=== PATIENT | female | born 1990 | race American Indian/Alaskan Native ===

== ENCOUNTER 2016-12-11 13:21 | Emergency (ER) | payer OTHER ==
[2016-12-11 13:21] VITALS: BMI 24.5
[2016-12-11 13:31] VITALS: TEMP 98.4
--- NOTE | 2016-12-11 13:54 | ED PDOC ---
Arrival/HPI - General Chief Complaint: Lower Extremity Problem/Injury Time Seen by Provider: 12/11/16 13:48 Historian: Patient - History of Present Illness Narrative History of Present Illness (Text): 12/11/16 13:49 A 26 year old female, whose past medical history includes DVT, presents to the emergency department complaining of bilateral calf pain for the past 3 weeks. Patient describes the pain as a cramping sensation. Patient denies any relieving or exacerbating factors. She reports the last time she was diagnosed with a DVT she followed up with a research program intern once but then stopped taking the blood thinners prescribed to her (this was >3 years ago and she was told to take them for 6 months). Patient denies any fall, injury, trauma, fever, nausea , vomiting, diarrhea, abdominal pain, urinary symptoms, chest pain, shortness of breath, lower extremity swelling or any other complaints. PMD: Dr. Queen 12/11/16 15:48 Time/Duration: Other (3 weeks) Symptom Course: Unchanged Quality: Cramping Context: Other Past Medical History - Provider Review Nursing Documentation Reviewed: Yes - Infectious Disease Hx of Infectious Diseases: None - Tetanus Immunization Tetanus Immunization: Unknown - Past Medical History Past Medical History: No Previous - Cardiac Hx Cardiac Disorders: No - Pulmonary Hx Respiratory Disorders: No - Neurological Hx Neurological Disorder: No - HEENT Hx HEENT Disorder: No - Renal Hx Renal Disorder: No - Endocrine/Metabolic Hx Endocrine Disorders: No - Hematological/Oncological Hx Blood Disorders: No Other/Comment: DVT - Integumentary Hx Dermatological Disorder: No - Musculoskeletal/Rheumatological Hx Musculoskeletal Disorders: No Hx Falls: No - Gastrointestinal Hx Gastrointestinal Disorders: No - Genitourinary/Gynecological Hx Genitourinary Disorders: No - Psychiatric Hx Psychophysiologic Disorder: No Hx Substance Use: No - Past Surgical History Past Surgical History: No Previous - Anesthesia Hx Anesthesia: No - Suicidal Assessment Feels Threatened In Home Enviroment: No Family/Social History - Physician Review Nursing Documentation Reviewed: Yes Family/Social History: Blood Clots Smoking Status: Light Smoker < 10 Cigarettes Daily Hx Alcohol Use: No Hx Substance Use: No Hx Substance Use Treatment: No Allergies/Home Meds Allergies/Adverse Reactions: Allergies latex Allergy (Severe, Verified 12/11/16 13:31) ANAPHYLAXIS Home Medications: Home Meds Medication Instructions Recorded Confirmed No Known Home Med 12/11/16 12/11/16 Review of Systems - Physician Review All systems were reviewed & negative as marked: Yes - Review of Systems Constitutional: absent: Fatigue, Weight Change, Fevers Eyes: absent: Vision Changes ENT: absent: Hearing Changes Respiratory: absent: SOB, Cough, Sputum, Wheezing Cardiovascular: Calf Pain. absent: Chest Pain, Palpitations, Edema, Orthopnea, Syncope Gastrointestinal: absent: Abdominal Pain, Constipation, Diarrhea, Nausea, Vomiting Genitourinary Female: absent: Dysuria, Frequency, Hematuria, Urine Output Changes Musculoskeletal: Other (Bilateral calf pain, No swelling) Physical Exam Vital Signs Reviewed: Yes Vital Signs Temp Pulse Resp BP Pulse Ox 12/11/16 15:07 80 16 122/84 98 12/11/16 13:34 98.4 F 81 18 121/83 99 12/11/16 13:24 98.4 F 81 18 121/83 99 Temperature: Afebrile Blood Pressure: Normal Pulse: Regular Respiratory Rate: Normal Appearance: Positive for: Well-Appearing, Non-Toxic, Comfortable Pain Distress: None Mental Status: Positive for: Alert and Oriented X 3 - Systems Exam Head: Present: Atraumatic, Normocephalic Pupils: Present: PERRL Extroacular Muscles: Present: EOMI Conjunctiva: Present: Normal Respiratory/Chest: Present: Clear to Auscultation, Good Air Exchange. No: Respiratory Distress, Accessory Muscle Use Cardiovascular: Present: Regular Rate and Rhythm, Normal S1, S2. No: Murmurs Abdomen: Present: Normal Bowel Sounds. No: Tenderness, Distention, Peritoneal Signs Lower Extremity: Present: CALF TENDERNESS (Bilateral calf tenderness to palpation), NORMAL PULSES (Normal DP pulses), Normal ROM, Neurovascularly Intact , Other (No joint laxity in bilateral knees). No: Edema, Swelling, Erythema, Deformity, Temperature Abnormalties Neurological: Present: GCS=15, CN II-XII Intact, Speech Normal, Gait Normal Skin: Present: Warm, Dry, Normal Color. No: Rashes Psychiatric: Present: Alert, Oriented x 3, Normal Insight, Normal Concentration Medical Decision Making ED Course and Treatment: 12/11/16 13:49 Impression: A 26 year old female with bilateral calf pain. No swelling evident on exam. Patient denies any trauma, swelling, chest pain or shortness of breath. Differential Diagnosis included but are not limited to: DVT vs. Musculoskeletal Plan: -- Duplex lower extremity ultrasound -- Labs -- Toradol -- Reassess and disposition Progress Notes: 12/11/16 14:48 U/s negative for DVT. Patient instructed to take motrin as needed, follow-up with PMD for leg pain and known anemia - Lab Interpretations Lab Results: 12/11/16 14:19 12/11/16 14:19 Lab Results 12/11/16 14:19: Sodium 140, Potassium 3.8, Chloride 103, Carbon Dioxide 26, Anion Gap 15, BUN 13, Creatinine 0.6, Est GFR ( Amer) > 60, Est GFR (Non- Af Amer) > 60, Random Glucose 69 L, Calcium 9.0 12/11/16 14:19: PT 11.3, INR 1.05, APTT 28.8 12/11/16 14:19: WBC 5.8, RBC 3.98, Hgb 11.3 L, Hct 34.1 L, MCV 85.7, MCH 28.4, MCHC 33.1, RDW 12.9, Plt Count 257, MPV 10.1, Gran % 48.9 L, Lymph % (Auto) 43.7 H, Towner % (Auto) 5.0, Eos % (Auto) 1.9, Baso % (Auto) 0.5, Gran # 2.85, Lymph # 2.6, Towner # 0.3, Eos # 0.1, Baso # 0.03 I have reviewed the lab results: Yes - RAD Interpretation Radiology Orders: 12/11/16 13:48 DUPLEX LOWER EXTRM VEIN BILAT [US] Stat - Medication Orders Current Medication Orders: Discontinued Medications Ketorolac Tromethamine (Toradol) 30 mg IVP STAT STA Stop: 12/11/16 13:50 Last Admin: 12/11/16 14:15 Dose: 30 mg - Scribe Statement The provider has reviewed the documentation as recorded by the Benjamin Gill Provider Scribe Attestation: All medical record entries made by the Scribe were at my direction and personally dictated by me. I have reviewed the chart and agree that the record accurately reflects my personal performance of the history, physical exam, medical decision making, and the department course for this patient. I have also personally directed, reviewed, and agree with the discharge instructions and disposition. Disposition/Present on Arrival - Present on Arrival Any Indicators Present on Arrival: No History of DVT/PE: No History of Uncontrolled Diabetes: No Urinary Catheter: No History of Decub. Ulcer: No History Surgical Site Infection Following: None - Disposition Have Diagnosis and Disposition been Completed?: Yes Diagnosis: Anemia, Leg pain Disposition: HOME/ ROUTINE Disposition Time: 14:48 Patient Plan: Discharge Condition: GOOD Discharge Instructions (ExitCare): Anemia (ED) Additional Instructions: Follow up with PMD within 2 days for further evaluation of anemia and leg pain. Motrin as needed for pain. Return to ED if condition worsens Referrals: Maximo Queen MD [Primary Care Provider] - Follow up with primary
[2016-12-11 14:19] LABS: ADD MANUAL DIFF? NO
[2016-12-11 14:29] LABS: BASO # 0.03 K/mm3 (0.0-2.0); BASO % 0.5 % (0.0-3.0); EOS # 0.1 (0.0-0.7); EOS % 1.9 % (1.5-5.0); GRAN # 2.85 (1.4-6.5); GRAN % 48.9 % (50.0-68.0); HEMATOCRIT 34.1 % (36.0-48.0); LYMPH # 2.6 (1.2-3.4); LYMPH % 43.7 % (22.0-35.0); MEAN CELL VOLUME 85.7 fL (80.0-105.0); MEAN CORPUSCULAR HEMOGLOBIN 28.4 pg (25.0-35.0); MEAN CORPUSCULAR HGB CONC 33.1 g/dl (31.0-37.0); MEAN PLATELET VOLUME 10.1 fl (7.0-11.0); MONO # 0.3 (0.1-0.6); PLATELET COUNT 257 10^3/uL (120.0-450.0); RED CELL DISTRIBUTION WIDTH 12.9 % (11.5-14.5); WHITE BLOOD COUNT 5.8 10^3/ul (4.5-11.0)
[2016-12-11 14:32] LABS: BLOOD UREA NITROGEN 13 mg/dL (7-21); CARBON DIOXIDE 26 mmol/L (21-33); CHLORIDE 103 mmol/L (98-107); GFR AFRICAN-AMERICAN > 60; GLUCOSE,RANDOM 69 mg/dL (70-110); POTASSIUM 3.8 mmol/L (3.6-5.0); SODIUM 140 mmol/L (132-148)
[2016-12-11 14:41] LABS: INR 1.05 (0.93-1.08); PARTIAL THROMBOPLASTIN TIME 28.8 Seconds (23.7-30.8)
[2016-12-11 15:09] VITALS: BP 122/84; PULSE 80; RESP 16; O2SAT 98
--- NOTE | 2016-12-11 16:15 | US ---
HISTORY: Leg pain and swelling. Evaluate for DVT PHYSICIAN(S): Bashir Borden MD. TECHNIQUE: Duplex sonography and color-flow Doppler with graded compression were used to evaluate the deep venous systems of both lower extremities. FINDINGS: The visualized deep venous systems of both lower extremities are sonographically normal and compressible. Normal wave forms and augmentation are seen. There is no sonographic evidence for deep venous thrombosis in the visualized segments of both lower extremities. IMPRESSION: No sonographic evidence for deep venous thrombosis in the visualized segments of both lower extremities.
== END 2016-12-11 15:08 | disposition home or self-care (01) ==
LOC: ED 13:21
DX: D64.9 Anemia, unspecified (principal); M79.662 Pain in left lower leg; M79.661 Pain in right lower leg
CPT/HCPCS: 80048; 85025; 85610; 85730; 93970; 96374; 99284; J1885

== ENCOUNTER 2017-01-22 09:25 | Emergency (ER) | payer OTHER ==
[2017-01-22 10:02] VITALS: RESP 18; TEMP 98.8; O2SAT 100; BMI 25.7
--- NOTE | 2017-01-22 11:01 | ED PDOC ---
Arrival/HPI - General Chief Complaint: Lower Extremity Problem/Injury Time Seen by Provider: 01/22/17 10:14 Historian: Patient - History of Present Illness Narrative History of Present Illness (Text): 01/22/17 11:01 26 year old female whose past medical history includes DVT presents to the emergency department with right knee pain for the past 2 months. She states pain is worse when standing. Patient states this is similar to previous pain. She states she took Excedrin with no significant improvement. Denies recent trauma or injury. Denies heavy lifting. Time/Duration: > month (x 2 months) Symptom Onset: Gradual Symptom Course: Unchanged Modifying Factors (Text): Excedrin with no significant improvement Past Medical History - Provider Review Nursing Documentation Reviewed: Yes - Infectious Disease Hx of Infectious Diseases: None - Tetanus Immunization Tetanus Immunization: Unknown - Past Medical History Past Medical History: No Previous - Cardiac Hx Cardiac Disorders: No - Pulmonary Hx Respiratory Disorders: No - Neurological Hx Neurological Disorder: No - HEENT Hx HEENT Disorder: No - Renal Hx Renal Disorder: No - Endocrine/Metabolic Hx Endocrine Disorders: No - Hematological/Oncological Hx Blood Disorders: No Other/Comment: DVT - Integumentary Hx Dermatological Disorder: No - Musculoskeletal/Rheumatological Hx Musculoskeletal Disorders: No Hx Falls: No Other/Comment: DVT - Gastrointestinal Hx Gastrointestinal Disorders: No - Genitourinary/Gynecological Hx Genitourinary Disorders: No - Psychiatric Hx Psychophysiologic Disorder: No Hx Substance Use: No - Past Surgical History Past Surgical History: No Previous - Anesthesia Hx Anesthesia: No - Suicidal Assessment Feels Threatened In Home Enviroment: No Family/Social History - Physician Review Nursing Documentation Reviewed: Yes Family/Social History: Unknown Family HX Smoking Status: Light Smoker < 10 Cigarettes Daily Hx Alcohol Use: Yes Frequency of alcohol use: Socially Hx Substance Use: No Hx Substance Use Treatment: No Allergies/Home Meds Allergies/Adverse Reactions: Allergies latex Allergy (Severe, Verified 01/22/17 10:02) ANAPHYLAXIS Home Medications: Home Meds Medication Instructions Recorded Confirmed No Known Home Med 12/11/16 01/22/17 Review of Systems - Review of Systems Musculoskeletal: Other (Right knee pain) Neurological: absent: Headache, Dizziness Physical Exam Vital Signs Reviewed: Yes Vital Signs Temp Pulse Resp BP Pulse Ox 01/22/17 12:30 71 18 107/69 100 01/22/17 09:56 98.8 F 78 18 110/70 100 Temperature: Afebrile Blood Pressure: Normal Pulse: Regular Respiratory Rate: Normal Appearance: Positive for: Well-Appearing, Non-Toxic, Comfortable Pain Distress: None Mental Status: Positive for: Alert and Oriented X 3 - Systems Exam Lower Extremity: Present: NORMAL PULSES, Normal ROM, Tenderness (to the medial side of the knee), Neurovascularly Intact, Other (No ataxia. No instability of knee when walking). No: Edema, CALF TENDERNESS, Swelling, Erythema Neurological: Present: GCS=15, CN II-XII Intact, Speech Normal Skin: Present: Warm, Dry, Normal Color. No: Rashes Psychiatric: Present: Alert, Oriented x 3, Normal Insight, Normal Concentration Medical Decision Making ED Course and Treatment: Impression: 26 year old female presents to the emergency department with right knee pain for the past 2 months. Differential Diagnosis included but are not limited to: Knee strain vs fracture Plan: -- XR right knee -- Ibuprofen -- Reassess and disposition Prior Visits: Notes and results from previous visits were reviewed. Patient last seen in the ED on 12/11/16 for bilateral leg pain and discharged home. Sonogram negative for DVT. Progress Notes: 01/22/17 11:51 X-ray read by me negative for fracture or dislocation 01/22/17 11:52 Will mo wrap and discharge home. Patient aware of and agrees with plan. - RAD Interpretation Radiology Orders: 01/22/17 11:15 KNEE RIGHT 2 VIEWS (AP & LAT) [RAD] Stat - Medication Orders Current Medication Orders: Discontinued Medications Ibuprofen (Motrin Tab) 600 mg PO STAT STA Stop: 01/22/17 11:16 Last Admin: 01/22/17 11:53 Dose: 600 mg - Scribe Statement The provider has reviewed the documentation as recorded by the Benjamin Clark Provider Scribe Attestation: All medical record entries made by the Benjamin were at my direction and personally dictated by me. I have reviewed the chart and agree that the record accurately reflects my personal performance of the history, physical exam, medical decision making, and the department course for this patient. I have also personally directed, reviewed, and agree with the discharge instructions and disposition. Disposition/Present on Arrival - Present on Arrival Any Indicators Present on Arrival: No History of DVT/PE: No History of Uncontrolled Diabetes: No Urinary Catheter: No History of Decub. Ulcer: No History Surgical Site Infection Following: None - Disposition Have Diagnosis and Disposition been Completed?: Yes Diagnosis: Knee strain Disposition: HOME/ ROUTINE Disposition Time: 11:53 Patient Plan: Discharge Condition: GOOD Discharge Instructions (ExitCare): Knee Pain (ED) Additional Instructions: Ms Mejía, thank you for letting us take care of you today. Your provider was Dr. Teague. You were treated for Knee Strain. The emergency medical care you received today was directed at your acute symptoms. If you were prescribed any medication, please fill it and take as directed. It may take several days for your symptoms to resolve. Return to the Emergency Department if your symptoms worsen, do not improve, or if you have any other problems. Please contact your doctor or call one of the physicians/clinics you have been referred to that are listed on the Patient Visit Information form that is included in your discharge packet. Bring any paperwork you were given at discharge with you along with any medications you are taking to your follow up visit. Our treatment cannot replace ongoing medical care by a primary care provider (PCP) outside of the emergency department. Thank you for allowing the [facility] team to be part of your care today. If you had an X-Ray or CT scan: A Radiologist will review the ED reading if any change in treatment is needed we will contact you. If you had a blood, urine, or wound culture: It will take several days for the results, if any change in treatment is needed we will contact you. If you had an STI test: It will take 48 hours for the results. Please call after 1 week if you have not heard back. Referrals: [facility] [place] [Outside] - Follow up with primary PCP,NO [Primary Care Provider] - Follow up with primary Yefri Encarnacion MD [Staff Provider] - Follow up with primary Forms: [employer] (Chinese), WORK NOTE
--- NOTE | 2017-01-22 12:24 | RAD ---
PROCEDURE: Right Knee Radiographs. HISTORY: pain r/o fx COMPARISON: None. FINDINGS: BONES: Normal. No fracture. JOINTS: Normal. No osteoarthritis. JOINT EFFUSION: None. OTHER FINDINGS: None. IMPRESSION: Normal radiographs of the right knee.
[2017-01-22 12:30] VITALS: BP 107/69; PULSE 71
== END 2017-01-22 12:30 | disposition home or self-care (01) ==
LOC: ED 09:25
DX: S86.911A Strain of unspecified muscle(s) and tendon(s) at lower leg level, right leg, initial encounter (principal); X58.XXXA Exposure to other specified factors, initial encounter; Z86.718 Personal history of other venous thrombosis and embolism

== ENCOUNTER 2017-08-11 13:08 | Emergency (ER) | payer OTHER ==
[2017-08-11 13:09] VITALS: BMI 25.7
--- NOTE | 2017-08-11 13:30 | ED PDOC ---
Arrival/HPI - General Time Seen by Provider: 08/11/17 13:29 Historian: Patient - History of Present Illness Narrative History of Present Illness (Text): 08/11/17 13:29 27 y/o female, pmh including dvt, nkda, not on any anticoagulant or antiplatete , c/o sorethroat/cough/bodyache x 2 days with no recent traveling. Aching throat pain, associated with the cough and bodyache, no recent traveling, no fever or chills, no night sweat, no dizziness, no numbness or tingling, no other medical or psychological complaints. Past Medical History - Provider Review Nursing Documentation Reviewed: Yes - Infectious Disease Hx of Infectious Diseases: None - Tetanus Immunization Tetanus Immunization: Unknown - Past Medical History Past Medical History: No Previous - Cardiac Hx Cardiac Disorders: No - Pulmonary Hx Respiratory Disorders: No - Neurological Hx Neurological Disorder: No - HEENT Hx HEENT Disorder: No - Renal Hx Renal Disorder: No - Endocrine/Metabolic Hx Endocrine Disorders: No - Hematological/Oncological Hx Blood Disorders: No Other/Comment: DVT - Integumentary Hx Dermatological Disorder: No - Musculoskeletal/Rheumatological Hx Musculoskeletal Disorders: No Hx Falls: No Other/Comment: DVT - Gastrointestinal Hx Gastrointestinal Disorders: No - Genitourinary/Gynecological Hx Genitourinary Disorders: No - Psychiatric Hx Psychophysiologic Disorder: No Hx Substance Use: No - Past Surgical History Past Surgical History: No Previous - Anesthesia Hx Anesthesia: No - Suicidal Assessment Feels Threatened In Home Enviroment: No Family/Social History - Physician Review Nursing Documentation Reviewed: Yes Family/Social History: Unknown Family HX Smoking Status: Light Smoker < 10 Cigarettes Daily Hx Alcohol Use: Yes Hx Substance Use: No Hx Substance Use Treatment: No Allergies/Home Meds Allergies/Adverse Reactions: Allergies latex Allergy (Severe, Verified 08/11/17 13:42) ANAPHYLAXIS Review of Systems - Review of Systems Constitutional: absent: Fatigue, Fevers Eyes: absent: Vision Changes ENT: Sore Throat. absent: Hearing Changes Respiratory: Cough. absent: SOB Cardiovascular: absent: Chest Pain Gastrointestinal: absent: Abdominal Pain, Nausea, Vomiting Skin: absent: Rash, Pruritis Neurological: absent: Headache, Dizziness Physical Exam Vital Signs Temp Pulse Resp BP Pulse Ox 08/11/17 13:42 98.7 F 86 16 119/81 100 Temperature: Afebrile Blood Pressure: Normal Pulse: Regular Respiratory Rate: Normal Appearance: Positive for: Well-Appearing, Non-Toxic, Comfortable Pain Distress: Mild Mental Status: Positive for: Alert and Oriented X 3 - Systems Exam Head: Present: Atraumatic, Normocephalic, Other (no facial sinus tenderness) Pupils: Present: PERRL Extroacular Muscles: Present: EOMI Conjunctiva: Present: Normal Ears: Present: NORMAL TM. No: Erythema Mouth: Present: Moist Mucous Membranes Pharnyx: No: ERYTHEMA, EXUDATE, TONSILS ENLARGED, Uvular Deviation, Muffled/ Hoarse Voice, Soft Palate/Uvular Edema Nose (External): No: Abrasion, Contusion Nose (Internal): Present: Normal Inspection, No Active Bleeding. No: Rhinorrhea , Septal Hematoma, Epistaxis Neck: Present: Normal Range of Motion Respiratory/Chest: Present: Clear to Auscultation, Good Air Exchange. No: Respiratory Distress, Accessory Muscle Use, Wheezes, Retracting, Rhonchi Cardiovascular: Present: Regular Rate and Rhythm, Normal S1, S2. No: Murmurs Abdomen: Present: Normal Bowel Sounds. No: Tenderness, Distention, Peritoneal Signs Back: Present: Normal Inspection Upper Extremity: Present: Normal Inspection. No: Cyanosis, Edema Lower Extremity: Present: Normal Inspection. No: Edema Neurological: Present: GCS=15, Speech Normal, Motor Func Grossly Intact, Gait Normal, Memory Normal Skin: Present: Warm, Dry, Normal Color. No: Rashes Psychiatric: Present: Alert, Oriented x 3, Normal Insight, Normal Concentration Medical Decision Making ED Course and Treatment: 08/11/17 14:10 -rapid flu -chest xray -observe and reassess 08/11/17 15:06 -rapid flu negative, clinical suspicious is high -Discharge home with tamiflu, tylenol, promethazine dm, bed rest, follow up with your own pmd and ENT within 2 days, return to the ER for any new or worsening signs or symptoms. - Lab Interpretations Lab Results: Lab Results 08/11/17 14:00: Influenza Typ A,B (EIA) Negative for flu a/b - RAD Interpretation Radiology Orders: 08/11/17 14:07 CHEST PORTABLE [RAD] Stat Disposition/Present on Arrival - Present on Arrival Any Indicators Present on Arrival: No History of DVT/PE: No History of Uncontrolled Diabetes: No Urinary Catheter: No History of Decub. Ulcer: No History Surgical Site Infection Following: None - Disposition Have Diagnosis and Disposition been Completed?: Yes Diagnosis: Influenza-like symptoms Disposition: HOME/ ROUTINE Disposition Time: 15:08 Isolation: Special Contact Patient Plan: Discharge Patient Problems: Current Active Problems Problem Status Onset Influenza-like symptoms Acute Condition: GOOD Additional Instructions: -Discharge home with tamiflu, tylenol, promethazine dm, bed rest, follow up with your own pmd and ENT within 2 days, return to the ER for any new or worsening signs or symptoms. Prescriptions: Acetaminophen [Tylenol 325mg tab] 2 tab PO QID PRN #30 tab PRN Reason: Other Oseltamivir Phosphate [Tamiflu] 75 mg PO BID #10 capsule Promethazine DM [Phenergan DM Syrup] 5 ml PO QID PRN #200 ml PRN Reason: Other Referrals: Maximo Queen MD [Primary Care Provider] - Follow up with primary Neftaly Swan DO [Staff Provider] - Follow up with primary Forms: WORK NOTE
[2017-08-11 13:47] VITALS: TEMP 98.7; O2SAT 100
--- NOTE | 2017-08-11 15:27 | RAD ---
HISTORY: medical clearance COMPARISON: No prior. FINDINGS: LUNGS: No active pulmonary disease. PLEURA: No significant pleural effusion identified, no pneumothorax apparent. CARDIOVASCULAR: Normal. OSSEOUS STRUCTURES: No significant abnormalities. VISUALIZED UPPER ABDOMEN: Normal. OTHER FINDINGS: None. IMPRESSION: No active disease. Concordant results with the preliminary interpretation rendered by the emergency department physician procedure.
[2017-08-11 15:36] VITALS: BP 129/84; PULSE 84; RESP 14
== END 2017-08-11 15:47 | disposition home or self-care (01) ==
LOC: ED 13:08
DX: J11.1 Influenza due to unidentified influenza virus with other respiratory manifestations (principal); F17.210 Nicotine dependence, cigarettes, uncomplicated

== ENCOUNTER 2017-09-16 09:37 | Emergency (ER) | payer OTHER ==
[2017-09-16 10:02] VITALS: O2SAT 100
[2017-09-16 10:09] VITALS: BMI 26.4
[2017-09-16] MEDS: Sodium Chloride 0.9% 1,000 ML IV STA (11:17)
[2017-09-16] MEDS: Ipratropium 0.02% Inhal Soln (0.5 mg/2.5 ml) UD IH STA (11:17)
--- NOTE | 2017-09-16 12:34 | ED PDOC ---
Arrival/HPI - General Chief Complaint: Flu-like Symptoms Time Seen by Provider: 09/16/17 10:37 Historian: Patient - History of Present Illness Narrative History of Present Illness (Text): 09/16/17 12:31 A 27 year old female, whose past medical history includes DVT, presents to the emergency department complaining of generalized headache, rhinorrhea, productive cough with whitish-yellowish mucous, and body aches. Patient denies any nausea, vomiting, diarrhea, focal deficits, abdominal pain, dysuria, or any other complaints. Also, patient denies any sick contacts. PMD: Dr. Maximo Queen Past Medical History - Provider Review Nursing Documentation Reviewed: Yes - Infectious Disease Hx of Infectious Diseases: None - Tetanus Immunization Tetanus Immunization: Unknown - Past Medical History Past Medical History: No Previous - Cardiac Hx Cardiac Disorders: No - Pulmonary Hx Respiratory Disorders: No - Neurological Hx Neurological Disorder: No - HEENT Hx HEENT Disorder: No - Renal Hx Renal Disorder: No - Endocrine/Metabolic Hx Endocrine Disorders: No - Hematological/Oncological Hx Blood Disorders: No Other/Comment: DVT - Integumentary Hx Dermatological Disorder: No - Musculoskeletal/Rheumatological Hx Musculoskeletal Disorders: No Hx Falls: No Other/Comment: DVT - Gastrointestinal Hx Gastrointestinal Disorders: No - Genitourinary/Gynecological Hx Genitourinary Disorders: No - Psychiatric Hx Psychophysiologic Disorder: No Hx Substance Use: No - Past Surgical History Past Surgical History: No Previous - Anesthesia Hx Anesthesia: No - Suicidal Assessment Feels Threatened In Home Enviroment: No Family/Social History - Physician Review Nursing Documentation Reviewed: Yes Family/Social History: No Known Family HX Smoking Status: Light Smoker < 10 Cigarettes Daily Hx Alcohol Use: Yes Hx Substance Use: No Hx Substance Use Treatment: No Allergies/Home Meds Allergies/Adverse Reactions: Allergies latex Allergy (Severe, Verified 09/16/17 10:09) ANAPHYLAXIS Review of Systems - Physician Review All systems were reviewed & negative as marked: Yes - Review of Systems ENT: Rhinorrhea Respiratory: Cough (productive with whitish-yellowish mucous) Gastrointestinal: absent: Abdominal Pain, Diarrhea, Nausea, Vomiting Genitourinary Female: absent: Dysuria Musculoskeletal: Myalgias Neurological: Headache Physical Exam Vital Signs Reviewed: Yes Vital Signs Temp Pulse Resp BP Pulse Ox 09/16/17 11:17 101.8 F H 09/16/17 10:00 101.8 F H 109 H 18 127/78 100 Temperature: Afebrile Blood Pressure: Normal Pulse: Regular Respiratory Rate: Normal Appearance: Positive for: Well-Appearing Pain Distress: None Mental Status: Positive for: Alert and Oriented X 3 - Systems Exam Head: Present: Atraumatic, Normocephalic Pupils: Present: PERRL Extroacular Muscles: Present: EOMI Conjunctiva: Present: Normal Mouth: Present: Dry Nose (Internal): Present: Other (nasal turbinates) Neck: Present: Normal Range of Motion Respiratory/Chest: Present: Clear to Auscultation, Good Air Exchange. No: Respiratory Distress, Accessory Muscle Use Cardiovascular: Present: Regular Rate and Rhythm, Normal S1, S2. No: Murmurs Abdomen: Present: Normal Bowel Sounds. No: Tenderness, Distention, Peritoneal Signs Back: Present: Normal Inspection Upper Extremity: Present: Normal Inspection. No: Cyanosis, Edema Lower Extremity: Present: Normal Inspection. No: Edema Neurological: Present: GCS=15, CN II-XII Intact, Speech Normal Skin: Present: Warm, Dry, Normal Color. No: Rashes Psychiatric: Present: Alert, Oriented x 3, Normal Insight, Normal Concentration Medical Decision Making ED Course and Treatment: 09/16/17 12:34 Impression: 27 year old female with generalized headache, rhinorrhea, productive cough with whitish-yellowish mucous, and body aches. Physical exam shows dry mucous membranes and nasal turbinates. Plan: -- Chest X-ray -- Urinalysis -- Rapid Flu Test -- Atrovent -- Toradol -- Tylenol -- IV Fluids -- Reassess and disposition Prior Visits: Notes and results from previous visits were reviewed. Patient was last seen in the emergency department on 08/11/2017 for sore throat, cough, bodyache. Patient was d/c home. Progress Notes: On re-evaluation, patient feels better and is in no acute distress. I have discussed the results and plan with the patient, who expresses understanding. Patient in agreement with plan to be discharged home. Patient is stable for discharge. Patient was instructed to follow up with physician or return if symptoms worsen or new concerning symptoms arise. 09/16/17 12:36 feels better, diet/lifestyle/return directions counseled. - Lab Interpretations Lab Results: Lab Results 09/16/17 11:04: Urine HCG, Qual Negative 09/16/17 10:12: Influenza Typ A,B (EIA) Negative for flu a/b - RAD Interpretation Radiology Orders: 09/16/17 10:40 CHEST TWO VIEWS (PA/LAT) [RAD] Stat - Medication Orders Current Medication Orders: Discontinued Medications Acetaminophen (Tylenol 325mg Tab) 975 mg PO STAT STA Stop: 09/16/17 10:38 Last Admin: 09/16/17 11:17 Dose: 975 mg MAR Pain/Vitals Document 09/16/17 11:17 SE (Rec: 09/16/17 11:17 SE [id number]) Pain Reassessment Is This A Pain ReAssessment? No Sleep Is patient sleeping during reassessment? No Vitals Temperature (97.6 F-99.6 F) 101.8 F Temperature Source Oral Sodium Chloride (Sodium Chloride 0.9%) 1,000 mls @ 999 mls/hr IV .Q1H1M STA Stop: 09/16/17 11:39 Last Admin: 09/16/17 11:17 Dose: 999 mls/hr eMAR Start Stop Document 09/16/17 11:17 SE (Rec: 09/16/17 11:17 SE [id number]) Intravenous Solution Start Date 09/16/17 Start Time 11:17 Ipratropium [place] (Atrovent) 0.5 mg IH STAT STA Stop: 09/16/17 10:40 Last Admin: 09/16/17 11:17 Dose: 0.5 mg Ketorolac Tromethamine (Toradol) 15 mg IVP STAT STA Stop: 09/16/17 10:40 Last Admin: 09/16/17 11:17 Dose: 15 mg MAR Pain Assessment Document 09/16/17 11:17 SE (Rec: 09/16/17 11:17 SE [id number]) Pain Reassessment Is this a pain reassessment? No Sleep Is patient sleeping during reassessment? No Presence of Pain Presence of Pain Yes Pain Scale Used Pain Scale Used Numeric IVP Administration Document 09/16/17 11:17 SE (Rec: 09/16/17 11:17 SE [id number]) Charges for Administration # of IVP Administrations 1 Ketorolac Tromethamine (Toradol) 15 mg IVP STAT STA Stop: 09/16/17 12:13 Oseltamivir Phosphate (Tamiflu Cap) 75 mg PO ONCE ONE PRN Reason: Protocol Stop: 09/16/17 12:28 - Scribe Statement The provider has reviewed the documentation as recorded by the Benjamin Mora Provider Shiraibe Attestation: All medical record entries made by the Scribe were at my direction and personally dictated by me. I have reviewed the chart and agree that the record accurately reflects my personal performance of the history, physical exam, medical decision making, and the department course for this patient. I have also personally directed, reviewed, and agree with the discharge instructions and disposition. Disposition/Present on Arrival - Present on Arrival Any Indicators Present on Arrival: No History of DVT/PE: No History of Uncontrolled Diabetes: No Urinary Catheter: No History of Decub. Ulcer: No History Surgical Site Infection Following: None - Disposition Have Diagnosis and Disposition been Completed?: Yes Diagnosis: Viral syndrome Disposition: HOME/ ROUTINE Disposition Time: 12:36 Patient Plan: Discharge Patient Problems: Current Active Problems Problem Status Onset Viral syndrome Acute Condition: IMPROVED Discharge Instructions (ExitCare): Viral Syndrome (ED), Dehydration (DC) Print Language: OCCITAN Additional Instructions: Drink plenty of water, water, herbal teas as we discussed (such as darnell/garlic /fresh lemon/ peppermitn concoction ), take tylenol alternating with motrin for your muscle aches and pains. Get extra rest. Take the tamiflu as prescribed and return for worseniing symptoms. Follow uyp with your pmd as needed for worsening symptoms or to ED if fevers are continuing or you develop shortness of bretah or intractable headache with fever . Prescriptions: Acetaminophen [Tylenol 325mg tab] 650 mg PO Q6 PRN #40 tab PRN Reason: Pain, Moderate (4-7) Ibuprofen [Motrin Tab] 600 mg PO Q6 PRN #40 tab PRN Reason: Pain, Moderate (4-7) Ipratropium [Atrovent HFA] 0.018 mg IH Q6 PRN #1 bottle PRN Reason: Cough Oseltamivir Phosphate [Tamiflu] 75 mg PO BID #10 capsule Referrals: Maximo Queen MD [Primary Care Provider] - Follow up with primary Forms: [employer] ([place])
[2017-09-16 12:49] VITALS: BP 130/82; PULSE 87; RESP 16; TEMP 98.9
== END 2017-09-16 13:17 | disposition home or self-care (01) ==
LOC: ED 09:37
DX: B34.9 Viral infection, unspecified (principal)
CPT/HCPCS: 84703; 87804; 96374; 96376; 99284; J1885; J7040

== ENCOUNTER 2018-03-30 22:03 | Emergency (ER) | payer OTHER ==
[2018-03-30 22:04] VITALS: BMI 26.4
[2018-03-30 22:27] VITALS: TEMP 98.3; O2SAT 100
[2018-03-30] MEDS ORDERED: TDAP Vaccine 0.5 mL Syr IM ONE (22:44)
--- NOTE | 2018-03-30 22:55 | ED PDOC ---
Arrival/HPI - General Chief Complaint: Lower Extremity Problem/Injury Time Seen by Provider: 03/30/18 22:44 Historian: Patient - History of Present Illness Narrative History of Present Illness (Text): 03/30/18 22:48 27 year old female, with no significant past medical history, whose last tetanus shot was over 10 years ago, presents to the emergency department complaining of pain to the sole of the foot after stepping on broken glass without any shoes or sock which occurred 2 days ago at home. Patient states she was cleaning broken glass at home and thought she cleaned everything, but accidentally stepped on a small piece of glass. Patient reports pain with foreign body sensation ever since to the sole of the foot. Patient denies having any known tingling, numbness, difficulty standing, or any other complaints/injuries. Time/Duration: Other (2 days) Symptom Onset: Sudden Symptom Course: Unchanged Activities at Onset: Light Context: Home Past Medical History - Provider Review Nursing Documentation Reviewed: Yes - Infectious Disease Hx of Infectious Diseases: None - Tetanus Immunization Tetanus Immunization: Unknown - Past Medical History Past Medical History: No Previous - Cardiac Hx Cardiac Disorders: No - Pulmonary Hx Respiratory Disorders: No - Neurological Hx Neurological Disorder: No - HEENT Hx HEENT Disorder: No - Renal Hx Renal Disorder: No - Endocrine/Metabolic Hx Endocrine Disorders: No - Hematological/Oncological Hx Blood Disorders: No Other/Comment: DVT - Integumentary Hx Dermatological Disorder: No - Musculoskeletal/Rheumatological Hx Musculoskeletal Disorders: No Hx Falls: No Other/Comment: DVT - Gastrointestinal Hx Gastrointestinal Disorders: No - Genitourinary/Gynecological Hx Genitourinary Disorders: No - Psychiatric Hx Psychophysiologic Disorder: No Hx Substance Use: No - Past Surgical History Past Surgical History: No Previous - Anesthesia Hx Anesthesia: No - Suicidal Assessment Feels Threatened In Home Enviroment: No Family/Social History - Physician Review Nursing Documentation Reviewed: Yes Family/Social History: No Known Family HX Smoking Status: Light Smoker < 10 Cigarettes Daily Hx Alcohol Use: Yes Hx Substance Use: No Hx Substance Use Treatment: No Allergies/Home Meds Allergies/Adverse Reactions: Allergies latex Allergy (Severe, Verified 09/16/17 10:09) ANAPHYLAXIS Review of Systems - Physician Review All systems were reviewed & negative as marked: Yes - Review of Systems Constitutional: absent: Fatigue, Fevers Eyes: absent: Vision Changes ENT: absent: Hearing Changes Respiratory: absent: SOB, Cough Cardiovascular: absent: Chest Pain Gastrointestinal: absent: Abdominal Pain, Nausea, Vomiting Musculoskeletal: absent: Arthralgias, Back Pain, Neck Pain, Myalgias Skin: Other (puncture wound to the right side of the plantar surface of the foot. ). absent: Rash, Pruritis Neurological: absent: Headache, Dizziness Psychiatric: absent: Anxiety, Depression Physical Exam Vital Signs Reviewed: Yes Vital Signs Temp Pulse Resp BP Pulse Ox 03/31/18 00:30 87 16 127/79 100 03/30/18 22:18 98.3 F 76 18 130/86 100 Temperature: Afebrile Blood Pressure: Normal Pulse: Regular Respiratory Rate: Normal Appearance: Positive for: Well-Appearing, Non-Toxic, Comfortable Pain Distress: Mild Mental Status: Positive for: Alert and Oriented X 3 - Systems Exam Head: Present: Atraumatic, Normocephalic Pupils: Present: PERRL Extroacular Muscles: Present: EOMI Conjunctiva: Present: Normal Mouth: Present: Moist Mucous Membranes Neck: Present: Normal Range of Motion Respiratory/Chest: Present: Clear to Auscultation, Good Air Exchange. No: Respiratory Distress, Accessory Muscle Use Cardiovascular: Present: Regular Rate and Rhythm, Normal S1, S2. No: Murmurs Abdomen: No: Tenderness, Distention, Peritoneal Signs Back: Present: Normal Inspection Upper Extremity: Present: Normal Inspection. No: Cyanosis, Edema Lower Extremity: Present: Normal ROM, Neurovascularly Intact, Other (Visible 0.5 cm diameter puncture wound with slight bruising. No visible or palpable foreign body sensation. Rt. foot with neurovascular intact. ). No: Edema Neurological: Present: GCS=15, CN II-XII Intact, Speech Normal Skin: Present: Warm, Dry, Normal Color. No: Rashes Psychiatric: Present: Alert, Oriented x 3, Normal Insight, Normal Concentration Medical Decision Making ED Course and Treatment: 03/30/18 22:55 Impression: 27 year old female presents complaining of a foreign body sensation after stepping on broken glass with no shoes or socks on that occurred 2 days ago. Plan: -- TDAP Vaccine -- Keflex/motrin -- POC Urine Preg. Test -- Foot Right 3 V X-ray -- Reassess and disposition 03/31/18 00:14 -Urine hcg is negative. -Rt. foot xray show no fracture/dislocation/foreign bodies. -Wound irrigated with saline 1000cc, clean with betadine, wound explored by me on the bed side with no visible or palpable foreign body grinding, advised to follow up with the weaver hand for further evaluation and crutches. I explained to the patient that there is possibility of small foreign bodies that's not visible and she would need to see the weaver hand for follow up. -Discharge home with keflex, motrin, crutches, non-weight bearing until the pain resolved, follow up with your own pmd and weaver hand within 2 days, return to the ER for any new or worsening signs or symptoms. - RAD Interpretation Radiology Orders: 03/30/18 22:44 FOOT RIGHT 3 VIEWS ROUTINE [RAD] Stat normal right foot radiograph Purchasing Intern: Radiologist - Medication Orders Current Medication Orders: Discontinued Medications Cephalexin Monohydrate (Keflex) 500 mg PO STAT STA PRN Reason: Protocol Stop: 03/30/18 22:48 Last Admin: 03/30/18 23:15 Dose: 500 mg Ibuprofen (Motrin Tab) 600 mg PO STAT STA Stop: 03/31/18 00:14 Last Admin: 03/31/18 00:21 Dose: 600 mg MAR Pain/Vitals Document 03/31/18 00:21 AD (Rec: 03/31/18 00:23 AD [id number]) Presence of Pain Presence of Pain Yes Location Intensity 5 Scale Used Numeric Tetanus/Reduced Diphtheria/Acell Pertussis (Boostrix Vaccine Inj) 0.5 ml IM .ONCE ONE Stop: 03/30/18 22:45 Last Admin: 03/30/18 23:15 Dose: 0.5 ml Immunization Registry Document 03/30/18 23:15 AD (Rec: 03/30/18 23:37 AD [id number]) Immunization Registry Consent Date 03/30/18 - PA / WAREHOUSE TEAM MEMBER / Resident Statement MD/DO has reviewed & agrees with the documentation as recorded. - Scribe Statement The provider has reviewed the documentation as recorded by the Benjamin Cohn Provider Scribe Attestation: All medical record entries made by the Scribe were at my direction and personally dictated by me. I have reviewed the chart and agree that the record accurately reflects my personal performance of the history, physical exam, medical decision making, and the department course for this patient. I have also personally directed, reviewed, and agree with the discharge instructions and disposition. Disposition/Present on Arrival - Present on Arrival Any Indicators Present on Arrival: No History of DVT/PE: No History of Uncontrolled Diabetes: No Urinary Catheter: No History of Decub. Ulcer: No History Surgical Site Infection Following: None - Disposition Have Diagnosis and Disposition been Completed?: Yes Diagnosis: Puncture wound Disposition: HOME/ ROUTINE Disposition Time: 00:17 Patient Plan: Discharge Condition: IMPROVED Additional Instructions: -Discharge home with keflex, motrin, crutches, non-weight bearing until the pain resolved, follow up with your own pmd and weaver hand within 2 days, return to the ER for any new or worsening signs or symptoms. Prescriptions: Cephalexin [Keflex] 500 mg PO TID #21 capsule Ibuprofen [Motrin Tab] 600 mg PO QID PRN #30 tab PRN Reason: Other Referrals: Torsten Johnson DPM [Staff Provider] - Follow up with primary Forms: [facility] ([place]), WORK NOTE
[2018-03-31 00:46] VITALS: BP 127/79; PULSE 87; RESP 16
--- NOTE | 2018-03-31 12:15 | RAD ---
Date of service: 03/30/2018 PROCEDURE: Right Foot Radiographs. HISTORY: rt. foot sole puncture wound, glass? COMPARISON: None. FINDINGS: BONES: Normal. No fracture. JOINTS: Normal. SOFT TISSUES: Normal. OTHER FINDINGS: None. IMPRESSION: Normal right foot radiographs.No visulaized radiopaque/visualized foreign body. Concordant results with the preliminary interpretation rendered by the emergency department physician procedure.
== END 2018-03-31 00:30 | disposition home or self-care (01) ==
LOC: ED 22:03
DX: S91.331A Puncture wound without foreign body, right foot, initial encounter (principal); W22.8XXA Striking against or struck by other objects, initial encounter; Y92.009 Unspecified place in unspecified non-institutional (private) residence as the place of occurrence of the external cause; Z23 Encounter for immunization

== ENCOUNTER 2018-07-13 21:30 | Emergency (ER) | payer OTHER ==
[2018-07-13 23:06] VITALS: BP 113/80; PULSE 64; RESP 18; TEMP 98
[2018-07-13 23:13] VITALS: BMI 25.0
--- NOTE | 2018-07-14 00:04 | ED PDOC ---
Arrival/HPI - General Historian: Patient - History of Present Illness Narrative History of Present Illness (Text): 07/13/18 23:05 27 year old female, whose past medical history includes sciatica and lower extremity DVT, presents to the emergency department complaining of left-sided arm pain for the past 1 day. Pain is located in the left bicep and is worse with movement, but denies any trauma or injury. She states she has been having lower back pain for the last month that feels like her sciatica pain which intermittently radiates down to the back of her legs. Patient did not take any medication for pain. Patient denies any fever, chills, cough, chest pain, shortness of breath, abdominal pain, nausea, vomiting, diarrhea, urinary symptoms, bowel/bladder incontinence, saddle anesthesia, weakness/parathesia, gait changes, headache, dizziness, or any other complaints. PMD: Dr. Queen Time/Duration: 24 hours Symptom Onset: Gradual Symptom Course: Unchanged Activities at Onset: Light Context: Home <Enid Martinez - Last Filed: 07/14/18 02:46> <Luke Middleton - Last Filed: 07/14/18 05:49> - General Chief Complaint: Back Pain Past Medical History - Provider Review Nursing Documentation Reviewed: Yes - Infectious Disease Hx of Infectious Diseases: None - Tetanus Immunization Tetanus Immunization: Unknown - Past Medical History Past Medical History: No Previous - Cardiac Hx Cardiac Disorders: No - Pulmonary Hx Respiratory Disorders: No - Neurological Hx Neurological Disorder: No - HEENT Hx HEENT Disorder: No - Renal Hx Renal Disorder: No - Endocrine/Metabolic Hx Endocrine Disorders: No - Hematological/Oncological Hx Blood Disorders: No Other/Comment: DVT - Integumentary Hx Dermatological Disorder: No - Musculoskeletal/Rheumatological Hx Musculoskeletal Disorders: Yes Hx Back Pain: Yes Hx Falls: No Other/Comment: DVT - Gastrointestinal Hx Gastrointestinal Disorders: No - Genitourinary/Gynecological Hx Genitourinary Disorders: No - Psychiatric Hx Psychophysiologic Disorder: No Hx Substance Use: No - Past Surgical History Past Surgical History: No Previous - Anesthesia Hx Anesthesia: No - Suicidal Assessment Feels Threatened In Home Enviroment: No <Enid Martinez - Last Filed: 07/14/18 02:46> Family/Social History - Physician Review Nursing Documentation Reviewed: Yes Family/Social History: No Known Family HX Smoking Status: Light Smoker < 10 Cigarettes Daily Hx Alcohol Use: Yes Frequency of alcohol use: Socially Hx Substance Use: No Hx Substance Use Treatment: No <GeminigauravEnid - Last Filed: 07/14/18 02:46> Allergies/Home Meds <Deandre Martinezyssa - Last Filed: 07/14/18 02:46> <Luke Middleton - Last Filed: 07/14/18 05:49> Allergies/Adverse Reactions: Allergies latex Allergy (Severe, Verified 07/13/18 23:16) ANAPHYLAXIS Review of Systems - Physician Review All systems were reviewed & negative as marked: Yes - Review of Systems Constitutional: absent: Fevers, Other (Chills) Respiratory: absent: SOB Cardiovascular: absent: Chest Pain Gastrointestinal: absent: Abdominal Pain, Diarrhea, Nausea, Vomiting Genitourinary Female: absent: Dysuria, Frequency, Hematuria, Other (bowel/bladder incontinence) Musculoskeletal: Back Pain (lower back pain radiates down to back of her legs), Other (left-sided arm pain). absent: Neck Pain Neurological: absent: Headache, Dizziness, Gait Changes, Other (weakness/parathesia) <GeminigauravEnid - Last Filed: 07/14/18 02:46> Physical Exam Vital Signs Reviewed: Yes Vital Signs Temp Pulse Resp BP Pulse Ox 07/13/18 23:04 98.0 F 64 18 113/80 97 Temperature: Afebrile Blood Pressure: Normal Pulse: Regular Respiratory Rate: Normal Appearance: Positive for: Well-Appearing, Non-Toxic, Comfortable Pain Distress: None Mental Status: Positive for: Alert and Oriented X 3 - Systems Exam Head: Present: Atraumatic, Normocephalic Pupils: Present: PERRL Extroacular Muscles: Present: EOMI Conjunctiva: Present: Normal Mouth: Present: Moist Mucous Membranes Neck: Present: Paraspinal Tenderness (cervical spine bilaterally), Other. No: Meningeal Signs, MIDLINE TENDERNESS Respiratory/Chest: Present: Clear to Auscultation, Good Air Exchange. No: Respiratory Distress, Accessory Muscle Use Cardiovascular: Present: Regular Rate and Rhythm, Normal S1, S2. No: Murmurs Abdomen: No: Tenderness, Distention, Peritoneal Signs Back: Present: Paraspinal Tenderness (left thoracic and lumbar bilaterally ), Pain with Leg Raise (on left leg). No: CVA Tenderness Upper Extremity: Present: Normal ROM, NORMAL PULSES, Tenderness ((+)left bicep exclusively tender to palpation. (-) no palpable cord), Neurovascularly Intact, Capillary Refill < 2s. No: Cyanosis, Edema, Swelling, Erythema Lower Extremity: Present: Normal Inspection, NORMAL PULSES, Normal ROM, Neurov ascularly Intact. No: Edema Neurological: Present: GCS=15, CN II-XII Intact, Speech Normal Skin: Present: Warm, Dry, Normal Color. No: Rashes Psychiatric: Present: Alert, Oriented x 3, Normal Insight, Normal Concentration <Enid Martinez - Last Filed: 07/14/18 02:46> Vital Signs Temp Pulse Resp BP Pulse Ox 07/13/18 23:04 98.0 F 64 18 113/80 97 <Luke Middleton - Last Filed: 07/14/18 05:49> Medical Decision Making ED Course and Treatment: 07/13/18 23:05 Impression: 27 year old female presents complaining of left bicep pain for the past day and lower back pain that radiates down to the back of the leg for the past month. Past medical history includes sciatica and lower extremity DVT. Plan: -- Labs -- Lidoderm, IV Fluids, Toradol -- Urine culture -- Urinalysis -- Duplex Upper extrem vein Left US -- Reassess and disposition Prior Visits: Notes and results from previous visits were reviewed. Progress Notes: 07/13/18 01:30 Duplex Upper extrem vein Left US Impression: Negative DVT 07/13/18 01:45 Dr. Middleton seen and evaluated patient at bedside. He agrees with plan of care, patient diagnosis, and disposition. 07/14/18 02:30 On reevaluation, patient is in no acute distress. I have discussed the results and plan with the patient, who expresses understanding. Patient given the opportunity to ask question, all questions were answered and there is agreement with the plan to discharge the patient home with prescription for Flexeril, Mot rin Tab, Lidoderm. Patient is stable for discharge. Patient was instructed to follow up with physician/clinic in 1-2 days or return if symptoms persist/worsen or new concerning symptoms arise. - Lab Interpretations I have reviewed the lab results: Yes - RAD Interpretation Radiology Orders: 07/14/18 00:02 DUPLEX UPPER EXTRM VEIN LEFT [US] Stat <Enid Martinez - Last Filed: 07/14/18 02:46> - Lab Interpretations Lab Results: 07/14/18 00:27 07/14/18 00:27 Lab Results 07/14/18 00:27: D-Dimer, Quantitative < 200 07/14/18 00:27: Sodium 141, Potassium 3.7, Chloride 106, Carbon Dioxide 28, Anion Gap 11, BUN 16, Creatinine 0.7, Est GFR ( Amer) > 60, Est GFR (Non- Af Amer) > 60, Random Glucose 88, Calcium 9.1, Total Bilirubin 0.3, AST 38 H, ALT 26, Alkaline Phosphatase 54, Total Protein 7.9, Albumin 4.3, Globulin 3.6, Albumin/Globulin Ratio 1.2 07/14/18 00:27: Urine Color Yellow, Urine Appearance Clear, Urine pH 6.0, Ur Specific [place] >= 1.030, Urine Protein Negative, Urine Glucose (UA) Negative, Urine Ketones Negative, Urine Blood Negative, Urine Nitrate Negative, Urine Bilirubin Negative, Urine Urobilinogen 0.2, Ur Leukocyte Esterase Negative 07/14/18 00:27: WBC 6.1, RBC 4.16, Hgb 11.8 L, Hct 36.3, MCV 87.3, MCH 28.4, MCHC 32.5, RDW 13.2, Plt Count 255, MPV 10.0, Gran % 37.2 L, Lymph % (Auto) 55.2 H, Rogers % (Auto) 5.3, Eos % (Auto) 2.0, Baso % (Auto) 0.3, Gran # 2.26, Lymph # (Auto) 3.4, Rogers # (Auto) 0.3, Eos # (Auto) 0.1, Baso # (Auto) 0.02 - RAD Interpretation Radiology Orders: 07/14/18 00:02 DUPLEX UPPER EXTRM VEIN LEFT [US] Stat - Medication Orders Current Medication Orders: Discontinued Medications Sodium Chloride (Sodium Chloride 0.9%) 1,000 mls @ 999 mls/hr IV .Q1H1M STA Stop: 07/14/18 01:28 Last Admin: 07/14/18 00:43 Dose: 999 mls/hr eMAR Start Stop Document 07/14/18 00:43 SS (Rec: 07/14/18 00:43 [id number]) Intravenous Solution Start Date 07/14/18 Start Time 00:43 End Date 07/14/18 End time 01:43 Total Infusion Time 60 Ketorolac Tromethamine (Toradol) 30 mg IVP STAT STA Stop: 07/14/18 00:29 Last Admin: 07/14/18 00:43 Dose: 30 mg MAR Pain Assessment Document 07/14/18 00:43 SS (Rec: 07/14/18 00:43 [id number]) Pain Reassessment Is this a pain reassessment? No IVP Administration Document 07/14/18 00:43 SS (Rec: 07/14/18 00:43 [id number]) Charges for Administration # of IVP Administrations 1 <Luke Middleton - Last Filed: 07/14/18 05:49> - Scribe Statement The provider has reviewed the documentation as recorded by the Benjamin Cohn Provider Scribe Attestation: All medical record entries made by the Scribjin were at my direction and personally dictated by me. I have reviewed the chart and agree that the record accurately reflects my personal performance of the history, physical exam, medical decision making, and the department course for this patient. I have also personally directed, reviewed, and agree with the discharge instructions and disposition. <Enid Martinez - Last Filed: 07/14/18 02:46> - PA / BUSINESS PROCESS MODELER / Resident Statement / has reviewed & agrees with the documentation as recorded. / has examined the patient and agrees with the treatment plan. <Luke Middleton - Last Filed: 07/14/18 05:49> Disposition/Present on Arrival - Present on Arrival History of DVT/PE: No History of Uncontrolled Diabetes: No Urinary Catheter: No History of Decub. Ulcer: No History Surgical Site Infection Following: None <Enid Martinez - Last Filed: 07/14/18 02:46> - Present on Arrival Any Indicators Present on Arrival: No - Disposition Have Diagnosis and Disposition been Completed?: Yes Disposition Time: 02:45 <Luke Middleton - Last Filed: 07/14/18 05:49> - Disposition Diagnosis: Sciatica, Muscle spasm Disposition: HOME/ ROUTINE Condition: STABLE Discharge Instructions (ExitCare): Sciatica (DC), Muscle Spasms (DC), Sciatica Exercises Additional Instructions: Increase fluids to stay hydrated Take flexeril every 8 hours as needed for pain, do not take before driving or operating heavy machinery Take ibuprofen every 8 hours as needed for pain Use lidoderm patches, 12 hours on 12 hours off Followup with primary doctor within 2 days Return to ER with any new/worsening symptoms Prescriptions: Cyclobenzaprine [Flexeril] 5 mg PO Q8H PRN #12 tab PRN Reason: Muscle Spasm Lidocaine 5% [Lidoderm] 1 patch TOP Q12H PRN #10 patch PRN Reason: Pain, Moderate (4-7) RX: Ibuprofen [Motrin Tab] 600 mg PO Q8H PRN #30 tab PRN Reason: Pain, Moderate (4-7) Referrals: Maximo Queen MD [Primary Care Provider] - Follow up with primary Forms: [employer] (Maldivian), WORK NOTE
[2018-07-14] MEDS ORDERED: Sodium Chloride 0.9% 1,000 ML IV STA (00:28)
[2018-07-14 00:50] LABS: BASO # 0.02 K/mm3 (0.0-2.0); BASO % 0.3 % (0.0-3.0); EOS # 0.1 (0.0-0.7); GRAN # 2.26 (1.4-6.5); GRAN % 37.2 % (50.0-68.0); HEMOGLOBIN 11.8 g/dL (12.0-16.0); LYMPH # 3.4 (1.2-3.4); LYMPH % 55.2 % (22.0-35.0); MEAN CELL VOLUME 87.3 fl (80.0-105.0); MEAN CORPUSCULAR HEMOGLOBIN 28.4 pg (25.0-35.0); MEAN CORPUSCULAR HGB CONC 32.5 g/dl (31.0-37.0); MONO # 0.3 (0.1-0.6); MONO % 5.3 % (1.0-6.0); RBC 4.16 10^6/uL (3.5-6.1); RED CELL DISTRIBUTION WIDTH 13.2 % (11.5-14.5); WHITE BLOOD COUNT 6.1 10^3/uL (4.5-11.0)
[2018-07-14 00:58] LABS: ALB/GLOB RATIO 1.2 (1.1-1.8); ALBUMIN 4.3 g/dL (3.0-4.8); ALT/SGPT 26 U/L (7-56); AST/SGOT 38 U/L (14-36); BLOOD UREA NITROGEN 16 mg/dL (7-21); CALCIUM 9.1 mg/dL (8.4-10.5); GFR NON-AFRICAN AMERICAN > 60
[2018-07-14 01:09] LABS: URINE BILIRUBIN NEGATIVE (NEGATIVE); URINE BLOOD NEGATIVE (NEGATIVE); URINE GLUCOSE (UA) NEGATIVE (NEGATIVE); URINE LEUKOCYTE ESTERASE NEGATIVE Leu/uL (NEGATIVE); URINE PROTEIN NEGATIVE mg/dL (<30 mg/dL); URINE UROBILINOGEN 0.2 E.U./dL (<1 E.U./dL)
[2018-07-14 01:10] LABS: URINE APPEARANCE CLEAR (CLEAR); URINE COLOR YELLOW (YELLOW)
[2018-07-14] MEDS ORDERED: Lidocaine 5% Patch TD STA (02:25)
[2018-07-14 03:43] VITALS: O2SAT 99
--- NOTE | 2018-07-14 08:31 | US ---
PROCEDURE: Left upper extremity venous ultrasound HISTORY: Arm pain and swelling. Evaluate for deep venous thrombosis. PHYSICIAN(S): Bashir Borden MD. FINDINGS: The visualized leftinternal jugular vein is sonographically normal and compressible. No evidence of obstruction or thrombus is seen. The visualized segments of the left subclavian vein are patent with normal waveforms. No sonographic evidence of obstruction or thrombosis is seen. The visualized deep venous system of the proximal leftupper extremity is sonographically normal and compressible. IMPRESSION: 1. No sonographic evidence for deep venous thrombosis in the visualized segments of the left upper extremity.
== END 2018-07-14 03:42 | disposition home or self-care (01) ==
LOC: ED 21:30
DX: M54.30 Sciatica, unspecified side (principal); M62.838 Other muscle spasm; Z86.718 Personal history of other venous thrombosis and embolism
CPT/HCPCS: 80053; 81003; 85025; 85378; 87086; 93971; 96361; 96374; 99283; J1885; J7030

== ENCOUNTER 2018-11-21 14:33 | Emergency (ER) | payer OTHER ==
[2018-11-21 14:33] VITALS: BMI 25.0
[2018-11-21 14:52] VITALS: RESP 18; O2SAT 99
--- NOTE | 2018-11-21 14:52 | ED PDOC ---
Arrival/HPI - General Time Seen by Provider: 11/21/18 14:36 Historian: Patient - History of Present Illness Narrative History of Present Illness (Text): 11/21/18 14:49 28-year-old female with no significant past medical history complains of pain to the plantar aspect of her left foot for the past few days, pain is worse with walking. Patient reports no trauma, injury, numbness, decrease in range of motion, other joint pain, fever. Patient also reports that she has been going to the gym and exercising more often than usual. Past Medical History - Infectious Disease Hx of Infectious Diseases: None - Tetanus Immunization Tetanus Immunization: Unknown - Past Medical History Past Medical History: No Previous - Cardiac Hx Cardiac Disorders: No - Pulmonary Hx Respiratory Disorders: No - Neurological Hx Neurological Disorder: No - HEENT Hx HEENT Disorder: No - Renal Hx Renal Disorder: No - Endocrine/Metabolic Hx Endocrine Disorders: No - Hematological/Oncological Hx Blood Disorders: No Other/Comment: DVT - Integumentary Hx Dermatological Disorder: No - Musculoskeletal/Rheumatological Hx Musculoskeletal Disorders: Yes Hx Back Pain: Yes Hx Falls: No Other/Comment: DVT - Gastrointestinal Hx Gastrointestinal Disorders: No - Genitourinary/Gynecological Hx Genitourinary Disorders: No - Psychiatric Hx Psychophysiologic Disorder: No Hx Substance Use: No - Past Surgical History Past Surgical History: No Previous - Anesthesia Hx Anesthesia: No - Suicidal Assessment Feels Threatened In Home Enviroment: No Family/Social History Family/Social History: No Known Family HX Smoking Status: Light Smoker < 10 Cigarettes Daily Hx Alcohol Use: Yes Hx Substance Use: No Hx Substance Use Treatment: No Allergies/Home Meds Allergies/Adverse Reactions: Allergies latex Allergy (Severe, Verified 11/21/18 14:53) ANAPHYLAXIS Review of Systems - Review of Systems Constitutional: absent: Fatigue, Fevers Musculoskeletal: Arthralgias. absent: Back Pain, Neck Pain, Joint Swelling Skin: absent: Rash, Skin Lesions Physical Exam Temperature: Afebrile Blood Pressure: Normal Pulse: Regular Respiratory Rate: Normal Appearance: Positive for: Well-Appearing, Non-Toxic, Comfortable Pain Distress: Moderate Mental Status: Positive for: Alert and Oriented X 3 - Systems Exam Upper Extremity: Present: Normal Inspection. No: Edema Lower Extremity: Present: Normal Inspection, NORMAL PULSES, Normal ROM, Tenderness (+tenderness to the plantar aspect of the L foot), Neurovascularly Intact, Capillary Refill < 2 s. No: Edema, CALF TENDERNESS, Miri's Sign, Swelling, Erythema, Deformity, Temperature Abnormalties Neurological: Present: GCS=15, CN II-XII Intact, Speech Normal, Motor Func Grossly Intact, Normal Sensory Function Skin: Present: Warm, Dry, Normal Color. No: Rashes Psychiatric: Present: Alert, Oriented x 3, Normal Insight, Normal Concentration Medical Decision Making ED Course and Treatment: 11/21/18 14:50 Plan : - XR L foot - Naprosyn PO XR L foot: no fracture, no dislocation, as read by PA On reevaluation, patient remains awake alert and oriented 3 in no acute distress. X-ray results discussed with the patient in great detail. Diagnosis of likely plantar fasciitis discussed with the patient. Advised to rest, ice and elevate the foot. Kevin wrap applied to the foot. Advised to follow up with podiatry referral in 1-2 days without fail. Advised to take medication as prescribed. Return to the emergency room at any time for any new or worsening symptoms. Patient states she fully agrees with and understands discharge instructions. States that she agrees with the plan and disposition. Verbalized and repeated discharge instructions and plan. I have given the patient opportunity to ask any additional questions. - PA / MEDICAL AIDE / Resident Statement / has reviewed & agrees with the documentation as recorded. Disposition/Present on Arrival - Present on Arrival Any Indicators Present on Arrival: No History of DVT/PE: No History of Uncontrolled Diabetes: No Urinary Catheter: No History of Decub. Ulcer: No History Surgical Site Infection Following: None - Disposition Have Diagnosis and Disposition been Completed?: Yes Diagnosis: Left foot pain, Plantar fasciitis of left foot Disposition: HOME/ ROUTINE Disposition Time: 15:40 Patient Plan: Discharge Patient Problems: Current Active Problems Problem Status Onset Left foot pain Acute Plantar fasciitis of left foot Acute Condition: STABLE Discharge Instructions (ExitCare): Heel Pain (Caused by Plantar Fasciitis) (DC), Plantar Fasciitis Exercises Additional Instructions: Thank you for letting us take care of you today. You were treated for L foot pain, likely plantar fasciitis. The emergency medical care you received today was directed at your acute symptoms. If you were prescribed any medication, please fill it and take as directed. It may take several days for your symptoms to resolve. Return to the Emergency Department if your symptoms worsen, do not improve, or if you have any other problems. Please contact your doctor in 2 days for re-evaluation and follow up / or call one of the physicians/clinics you have been referred to that are listed on the Patient Visit Information form that is included in your discharge packet. Bring any paperwork you were given at discharge with you along with any medications you are taking to your follow up visit. Our treatment cannot replace ongoing medical care by a primary care provider (PCP) outside of the emergency depa rtment. Thank you for allowing the [facility] team to be part of your care today. If you had an X-Ray: A Radiologist will review the ED reading if any change in treatment is needed we will contact you. Prescriptions: Meloxicam [Mobic] 15 mg PO DAILY #20 tab Referrals: Torsten Johnson DPM [Staff Provider] - Follow up with primary Forms: WORK NOTE
[2018-11-21] MEDS ORDERED: Naproxen 550 mg Tab PO STA (14:53)
--- NOTE | 2018-11-21 15:58 | RAD ---
PROCEDURE: Left Foot Radiographs. HISTORY: pain COMPARISON: None available. FINDINGS: BONES: No acute displaced fracture. JOINTS: No dislocation. SOFT TISSUES: Unremarkable. No evidence of radiopaque foreign body. OTHER FINDINGS: None. IMPRESSION: No acute displaced fracture, dislocation, or significant joint effusion identified. If symptoms persist, or if there is continued clinical concern, x-ray follow-up in 7-10 days should be considered.
[2018-11-21 16:00] VITALS: BP 125/59; PULSE 85; TEMP 98.2
== END 2018-11-21 15:54 | disposition home or self-care (01) ==
LOC: ED 14:33
DX: M72.2 Plantar fascial fibromatosis (principal); M79.672 Pain in left foot; F17.210 Nicotine dependence, cigarettes, uncomplicated